=== PATIENT | female | born 1970 | race Caucasian/White ===

== ENCOUNTER 2021-11-04 23:18 | Emergency (ER) | payer BC ==
[~2021-11-04] VITALS: Ht 152.4 cm; Wt 70.1 kg
--- NOTE | 2021-11-04 23:33 | PHYS DOC ---
Adult General HPI HPI Patient is a 51-year-old female with a past medical history of GERD who presents with a chief complaint of a few episodes of nonbloody nonbilious emesis over the last couple of days and exacerbation of her heartburn. Denies any recent traumas, travels, illnesses, fevers, chest pain, shortness of breath, other abdominal pain, dysuria, hematuria, blood in the stool or diarrhea. Denies any known ill contacts. States she took her once a day GERD medicine which did not seem to help. Review of Systems Review of Systems Review of systems otherwise unremarkable except noted in HPI Allergies Allergies Allergies Coded Allergies Type Severity Reaction Last Updated Verified No Known Drug Allergies 07/01/13 No Physical Exam Physical Exam Constitutional: Well developed, well nourished, no acute distress, non-toxic appearance. [] HENT: Normocephalic, atraumatic, bilateral external ears normal, oropharynx mo ist, no oral exudates, nose normal. [] Eyes: conjunctiva normal, no discharge. [] Neck: Normal range of motion, no tenderness, supple, no stridor. [] Cardiovascular:Heart rate regular rhythm, no murmur [] Lungs & Thorax: Bilateral breath sounds clear to auscultation [] Abdomen: soft, no tenderness, no masses, no pulsatile masses. [] Skin: Warm, dry, no erythema, no rash. [] Back:no CVA tenderness. [] Extremities: No tenderness, no cyanosis, no clubbing, ROM intact, no edema. [] Neurologic: Alert and oriented X 3,no focal deficits noted. [] Psychologic: Affect normal, judgement normal, mood normal. [] EKG EKG [] Radiology/Procedures Radiology/Procedures [] Heart Score C/O Chest Pain: No Risk Factors: Risk Factors: DM, Current or recent (<one month) smoker, HTN, HLP, family history of CAD, obesity. Risk Scores: Risk Factors: DM, Current or recent (<one month) smoker, HTN, HLP, family history of CAD, obesity. Course & Med Decision Making Course & Med Decision Making Patient is a 51-year-old female presents with nausea, vomiting and heartburn Vital signs nonconcerning. Physical exam noted above. Given medicines for symptom control On reassessment patient able to take p.o. and was feeling better and ready to go home Discussed symptom management at home. Advised to follow-up tomorrow with primary care physician Gave return precautions to the ED. Patient grateful, verbalized understanding and agreed with plan of discharge [] Dragon Disclaimer Dragon Disclaimer This electronic medical record was generated, in whole or in part, using a voice recognition dictation system. Departure Departure: Impression: Primary Impression: Nausea & vomiting Additional Impression: Heartburn Disposition: HOME / SELF CARE / HOMELESS Condition: STABLE Referrals: KRUPA BOSTON MD (PCP) Patient Instructions: Heartburn, Nausea and Vomiting Additional Instructions: Thank you for coming into the emergency department tonight allowing us to take care of you. Please read the attached information carefully to go over things we discussed. Over the next couple of days eat a light clear diet with nothing heavy. Please take your [id number] 1 a day omeprazole for heartburn. Please add Tums chewables 3 times a day with meals. Please follow-up tomorrow with your primary care physician to update on your ED visit and set up a follow- up as soon as you can this week. Please come back with new or concerning sympt oms as discussed. Problem Qualifiers LUCILA TINOCO MD Nov 04, 2021 23:33
[2021-11-04] MEDS ORDERED: LIDO:MAALOX 1:1 20 ML SINGLE DOSE. PO ONE (23:45)
[2021-11-04] MEDS ORDERED: METOCLOPRAMIDE HCL 10 MG/2 ML VIAL. IM ONE (23:45)
[2021-11-04] MEDS ORDERED: ONDANSETRON ODT 4 MG TAB.RAPDIS PO ONE (23:45)
[2021-11-05 00:32] VITALS: BP 112/59
[2021-11-05] MEDS ORDERED: ONDANSETRON 4MG ODT 4TABLET STARTPACK. PO ONE (01:00)
== END 2021-11-05 00:37 | disposition home or self-care (01) ==
LOC: ER 23:18
DX: R11.2 Nausea with vomiting, unspecified (principal); R12 Heartburn; K21.9 Gastro-esophageal reflux disease without esophagitis
CPT/HCPCS: 96372; 99284; J2765; Q0162